=== PATIENT | female | born 1990 | race American Indian/Alaskan Native ===

== ENCOUNTER 2016-11-18 23:43 | Emergency (ER) | payer MEDICAID ==
[2016-11-18 23:44] VITALS: BMI 32.5
[2016-11-19 00:16] VITALS: BP 116/63; PULSE 97; RESP 18; O2SAT 100
[2016-11-19] MEDS ORDERED: Dexamethasone 10 MG in Sodium Chloride 0.9% 50 ML IVPB STA (00:32)
[2016-11-19] MEDS ORDERED: Sodium Chloride 0.9% 1,000 ML IV STA (00:32)
--- NOTE | 2016-11-19 01:05 | ED PDOC ---
HPI: CCC, URI, Sore Throat Time Seen by Provider: 11/18/16 23:46 Chief Complaint (Nursing): ENT Problem Chief Complaint (Provider): Fever/Sore Throat History Per: Patient History/Exam Limitations: no limitations Have you had recent travel within the past 21 days to any of the following countries: [place], [place], [place] or [place]?: No Onset/Duration Of Symptoms: Days (x3) Current Symptoms Are (Timing): Still Present Sick Contacts (Context): None Additional Complaint(s): Antionette Oneil is a 26 year old female that presents to the ED with a chief complaint of a fever and sore throat that she has been experiencing for the past three days. Patient reports that when her initial symptoms began she had an associated cough, but that it has since resolved. She denies any rash, vomiting, diarrhea, abdominal pain, sick contacts, or recent travel. Past Medical History Reviewed: Historical Data, Nursing Documentation, Vital Signs Vital Signs: Last Vital Signs Temp 101.3 F H 11/19/16 00:50 Pulse 97 H 11/19/16 00:14 Resp 18 11/19/16 00:14 BP 116/63 11/19/16 00:14 Pulse Ox 100 11/19/16 01:10 - Medical History PMH: No Chronic Diseases - Family History Family History: States: Unknown Family Hx - Home Medications Home Medications: Ambulatory Orders Medication Instructions Recorded Amoxicillin [Amoxil 500 mg Cap] 500 mg PO TID #30 cap 11/19/16 Naproxen [Naprosyn] 500 mg PO BID PRN #30 tab 11/19/16 - Allergies Allergies/Adverse Reactions: Allergies Allergy/AdvReac Type Severity Reaction Status Date / Time No Known Allergies Allergy Verified 11/19/16 00:13 Review of Systems Constitutional: Positive for: Fever ENT: Positive for: Throat Pain (sore throat) Respiratory: Negative for: Cough (initially had cough, but has since resolved) Gastrointestinal: Negative for: Vomiting, Abdominal Pain, Diarrhea Skin: Negative for: Rash Physical Exam - Reviewed Nursing Documentation Reviewed: Yes Vital Signs Reviewed: Yes - Physical Exam Appears: Positive for: Non-toxic, No Acute Distress Head Exam: Positive for: ATRAUMATIC, NORMOCEPHALIC Skin: Positive for: Normal Color, Warm. Negative for: Rash Eye Exam: Positive for: Normal appearance, EOMI, PERRL ENT: Positive for: TM Is/Are (non-erythematous, non-bulging b/l), Pharyngeal Erythema (bilateral), Tonsillar Exudate (b/l), Other (b/l tonsillar erythema). Negative for: Normal ENT Inspection Neck: Positive for: Normal, Supple Cardiovascular/Chest: Positive for: Regular Rate, Rhythm. Negative for: Murmur Respiratory: Positive for: Normal Breath Sounds. Negative for: Wheezing Gastrointestinal/Abdominal: Positive for: Normal Exam, Soft. Negative for: Tenderness, Organomegaly Neurologic/Psych: Positive for: Alert, Oriented. Negative for: Motor/Sensory Deficits - Laboratory Results Result Diagrams: 11/19/16 01:10 11/19/16 01:10 - ECG O2 Sat by Pulse Oximetry: 100 (RA) Pulse Ox Interpretation: Normal Medical Decision Making Medical Decision Making: Impression: URI Plan: * CMP * CBC * HCG * VBG Shock Panel * Throat Culture * Blood Culture * Infectious Mononucleosis * Tylenol 3 975 mg PO * Dexamethasone 10 mg/50 mL IV * NaCl 1000 mL at 1000 mLs/hr * Reevaluation Scribe Attestation: Documented by Dayana Morrell, acting as a scribe for Christophe Castro PA-C. Provider Scribe Attestation: All medical record entries made by the Scribe were at my direction and personally dictated by me. I have reviewed the chart and agree that the record accurately reflects my personal performance of the history, physical exam, medical decision making, and the department course for this patient. I have also personally directed, reviewed, and agree with the discharge instructions and disposition. Disposition - Clinical Impression Clinical Impression: Pharyngitis - Patient ED Disposition Is Patient to be Admitted: No - Disposition Referrals: [facility] [Outside] Disposition: Routine/Home Disposition Time: 02:13 Condition: IMPROVED Additional Instructions: DRINK PLENTY OF FLUIDS FOLLOW UP WITH [facility] IN 2 DAYS FOR FURTHER EVALUATION. Prescriptions: Amoxicillin [Amoxil 500 mg Cap] 500 mg PO TID #30 cap Naproxen [Naprosyn] 500 mg PO BID PRN #30 tab PRN Reason: Pain or fever Instructions: Pharyngitis (ED) Forms: [facility] (Vincentian) Print Language: LAO
[2016-11-19 01:21] LABS: VENOUS BLOOD GAS BASE EXCESS 3.5 mmol/L (0.0-2.0); VENOUS BLOOD GAS PCO2 57 mmHg (40-60); VENOUS BLOOD PH 7.34 (7.32-7.43)
[2016-11-19 01:35] LABS: BASO % 0.2 % (0.0-2.0); HEMATOCRIT 40.2 % (34.0-47.0); LYMPH % 11.5 % (20.0-40.0); MEAN CELL VOLUME 81.3 fl (81.0-99.0); MEAN CORPUSCULAR HEMOGLOBIN 25.7 pg (27.0-31.0); MEAN CORPUSCULAR HGB CONC 31.6 g/dL (33.0-37.0); MEAN PLATELET VOLUME 9.6 fl (7.2-11.7); MONO # 1.5 K/uL (0.0-0.8); NEUT # 13.4 K/uL (1.8-7.0); NEUT % 79.3 % (50.0-75.0); RED CELL DISTRIBUTION WIDTH 14.8 % (11.5-14.5); WHITE BLOOD COUNT 16.9 K/uL (4.8-10.8)
[2016-11-19 01:42] LABS: ALB/GLOB RATIO 1.1 (1.0-2.1); ALKALINE PHOSPHATASE 83 U/L (38-126); ALT/SGPT 29 U/L (9-52); AST/SGOT 17 U/L (14-36); BILIRUBIN,TOTAL 0.3 mg/dl (0.2-1.3); BLOOD UREA NITROGEN 7 mg/dl (7-17); CALCIUM 9.4 mg/dL (8.4-10.2); CARBON DIOXIDE 27 mmol/L (22-30); CHLORIDE 101 mmol/L (98-107); GFR AFRICAN-AMERICAN > 60; GLUCOSE,RANDOM 101 mg/dL (65-105); POTASSIUM 4.7 MMOL/L (3.6-5.0); SODIUM 137 mmol/l (132-148)
[2016-11-19 03:23] VITALS: TEMP 99.2
== END 2016-11-19 03:22 | disposition home or self-care (01) ==
LOC: H.ER 23:43
DX: R50.9 Fever, unspecified (principal); J02.9 Acute pharyngitis, unspecified